=== PATIENT | male | born 1980 | race Caucasian/White ===

== ENCOUNTER 2017-08-05 07:42 | Emergency (ER) | payer MEDICAID ==
[~2017-08-05] VITALS: Ht 190.5 cm; Wt 84.4 kg
[2017-08-05 07:43] VITALS: BP 128/86
[2017-08-05] MEDS ORDERED: LIDOCAINE 1%, 20ML ONE (07:57)
[2017-08-05] MEDS ORDERED: LIDOCAINE 1%, 20ML SQ ONE (08:00)
[2017-08-05] MEDS ORDERED: HYDROcodone/APAP 5/325 TABLET ONE (08:24)
[2017-08-05] MEDS ORDERED: HYDROcodone/APAP 5/325 TABLET PO ONE (08:30)
== END 2017-08-05 08:36 | disposition home or self-care (01) ==
LOC: ED 08:15
DX: K02.9 Dental caries, unspecified (principal); K04.7 Periapical abscess without sinus; J44.9 Chronic obstructive pulmonary disease, unspecified
CPT/HCPCS: 41800; 99284; J3490

== ENCOUNTER 2020-04-23 09:35 | Emergency (ER) | payer MEDICAID ==
[~2020-04-23] VITALS: Ht 190.5 cm; Wt 92.3 kg
[2020-04-23 09:36] VITALS: BP 133/81
--- NOTE | 2020-04-23 09:45 | NUR ---
[employer]: PT TO ROOM FROM LOBBY VIA W/C
--- NOTE | 2020-04-23 10:01 | NUR ---
PT UPRIGHT ON GURNEY AWAKE & CALM, RESPONDS APPROP TO STAFF, C/O PAIN TO LT ANKLE BUT BETTER WITH NO MOVEMENT/PALPATION, COMFORT MEASURES PROVIDED, CALL LIGHT WITHIN REACH.
--- NOTE | 2020-04-23 10:08 | NUR ---
PT TO XR
--- NOTE | 2020-04-23 11:57 | NUR ---
PT REMAINS UPRIGHT ON GURNEY AWAKE & CALM, RESPONDS APPROP TO STAFF, NO CHANGES IN C/O PAIN TO LT ANKLE, NO NEEDS AT THIS TIME, CALL LIGHT WITHIN REACH.
--- NOTE | 2020-04-23 12:04 | NUR ---
Patient given splint/crutches, discharge instructions and Rx, they have confirmed that they understand the instructions. Patient ambulatory with steady gait via crutch use.
== END 2020-04-23 12:52 | disposition home or self-care (01) ==
LOC: ED 11:16
DX: S93.402A Sprain of unspecified ligament of left ankle, initial encounter (principal); G89.29 Other chronic pain; W01.0XXA Fall on same level from slipping, tripping and stumbling without subsequent striking against object, initial encounter; Y93.89 Activity, other specified; Y92.488 Other paved roadways as the place of occurrence of the external cause; Y99.8 Other external cause status
CPT/HCPCS: 29515; 99284